=== PATIENT | female | born 1985 | race American Indian/Alaskan Native ===

== ENCOUNTER 2016-11-22 09:05 | Inpatient (IN) | payer MEDICAID, OTHER ==
[2016-11-22] MEDS ORDERED: Sodium Chloride 0.9% 1,000 ML IV ONE (09:31)
[2016-11-22 10:15] LABS: RBC URINE 2 /hpf (0-3); URINE BILIRUBIN NEGATIVE (NEGATIVE); URINE BLOOD NEGATIVE (NEGATIVE); URINE COLOR Yellow (YELLOW); URINE GLUCOSE (UA) NORMAL (Normal); URINE KETONE NEGATIVE (NEGATIVE); URINE LEUKOCYTE ESTERASE NEG Leu/uL (Negative); URINE PROTEIN NEGATIVE (NEGATIVE); URINE UROBILINOGEN NORMAL mg/dL (0.2-1.0); WBC URINE 1 /hpf (0-5)
[2016-11-22 10:15] LABS: BASO % 0.6 % (0.0-2.0); EOS # 0.2 K/uL (0.0-0.7); EOS % 3.9 % (0.0-4.0); HEMATOCRIT 38.9 % (34.0-47.0); LYMPH # 1.4 K/uL (1.0-4.3); LYMPH % 36.8 % (20.0-40.0); MEAN CELL VOLUME 92.2 fL (81.0-99.0); MEAN CORPUSCULAR HEMOGLOBIN 30.2 pg (27.0-31.0); MEAN CORPUSCULAR HGB CONC 32.7 g/dL (33.0-37.0); MEAN PLATELET VOLUME 8.4 fL (7.2-11.7); MONO # 0.3 K/uL (0.0-0.8); MONO % 8.6 % (0.0-10.0); NRBC % 0.2 % (0.0-2.0); RED CELL DISTRIBUTION WIDTH 13.6 % (11.5-14.5); WHITE BLOOD COUNT 3.9 K/uL (4.8-10.8)
[2016-11-22 10:21] LABS: INR 1.1
[2016-11-22 10:26] LABS: CHLORIDE 103 mmol/L (98-107)
[2016-11-22 10:27] LABS: POTASSIUM 3.4 mmol/L (3.6-5.2); SODIUM 143 mmol/L (132-148)
[2016-11-22 10:29] LABS: BILIRUBIN,TOTAL 0.7 mg/dL (0.2-1.3); CARBON DIOXIDE 26 mmol/L (22-30); GFR AFRICAN-AMERICAN > 60
[2016-11-22 10:30] LABS: ALB/GLOB RATIO 1.2 (1.0-2.1); ALKALINE PHOSPHATASE 56 U/L (38-126); ALT/SGPT 20 U/L (9-52); AST/SGOT 17 U/L (14-36); BLOOD UREA NITROGEN 14 mg/dL (7-17); GLUCOSE,RANDOM 89 mg/dL (65-105); TOTAL PROTEIN 7.6 g/dL (6.3-8.3)
--- NOTE | 2016-11-22 10:44 | C.PDOC ---
History Of Present Illness 31-year-old female, presents to the emergency department with complaints of right upper quadrant abdominal pain, referred by Dr White for cholecystectomy. Denies nausea/vomiting/diarrhea or fever. Time Seen by Provider: 11/22/16 09:22 Chief Complaint (Nursing): Abdominal Pain History Per: Patient History/Exam Limitations: no limitations Onset/Duration Of Symptoms: Days Location Of Pain/Discomfort: RUQ Quality Of Discomfort: Dull Alleviating Factors: None Recent travel outside of the [place]: No Past Medical History Reviewed: Historical Data, Nursing Documentation, Vital Signs Vital Signs: Last Vital Signs Temp 98.3 F 11/22/16 09:18 Pulse 74 11/22/16 09:18 Resp 18 11/22/16 09:18 BP 131/89 11/22/16 09:18 Pulse Ox 100 11/22/16 11:11 - Medical History PMH: Hypothyroidism Family History: States: No Known Family Hx - Social History Hx Alcohol Use: Yes Hx Substance Use: Yes - Immunization History Hx Tetanus Toxoid Vaccination: No Hx Influenza Vaccination: No Hx Pneumococcal Vaccination: No Review Of Systems Except As Marked, All Systems Reviewed And Found Negative. Constitutional: Negative for: Fever Cardiovascular: Negative for: Chest Pain Respiratory: Negative for: Shortness of Breath Gastrointestinal: Positive for: Abdominal Pain. Negative for: Nausea, Vomiting , Diarrhea Skin: Negative for: Rash Physical Exam - Physical Exam Appears: Non-toxic, No Acute Distress Skin: Normal Color, Warm, Dry, No Rash Head: Atraumatic, Normacephalic Eye(s): bilateral: Normal Inspection Nose: Normal Oral Mucosa: Moist Lips: Normal Appearing Neck: Normal ROM Cardiovascular: Rhythm Regular, No Murmur Respiratory: Normal Breath Sounds, No Accessory Muscle Use Gastrointestinal/Abdominal: Soft, Tenderness (RUQ), No Guarding, No Rebound Extremity: Normal ROM Neurological/Psych: Oriented x3, Normal Speech ED Course And Treatment - Laboratory Results Result Diagrams: 11/22/16 10:10 11/22/16 10:10 Lab Interpretation: Normal Urine POC: Negative ECG Rhythm: Sinus Bradycardia ECG Interpretation: Normal Rate From EC O2 Sat by Pulse Oximetry: 100 Pulse Ox Interpretation: Normal - Physician Consult Information Physician Contacted: Graham White Outcome Of Conversation: admit to Dr Avila Disposition Discussed With : Anabell Avila Doctor Will See Patient In The: Hospital - Disposition Disposition: HOSPITALIZED Disposition Time: 12:00 Condition: STABLE - POA Present On Arrival: None - Clinical Impression Clinical Impression: Abdominal pain, Cholecystitis - Scribe Statement The provider has reviewed the documentation as recorded by the Scribe (Jarred Escalera) All medical record entries made by the Scribe were at my direction and personally dictated by me. I have reviewed the chart and agree that the record accurately reflects my personal performance of the history, physical exam, medical decision making, and the department course for this patient. I have also personally directed, reviewed, and agree with the discharge instructions and disposition. Decision To Admit - Pt Status Changed To: Hospital Disposition Of: SDS Extended Stay Bed - InPatient: Physician Admission Certification:: Cholecystitis - . Bed Request Type: Regular Admitting Physician: Anabell Avila Patient Diagnosis: Abdominal pain, Cholecystitis
[2016-11-22] MEDS ORDERED: Sodium Chloride 0.9% 1,000 ML IV SCH (11:15)
--- NOTE | 2016-11-22 11:33 | CP.PCM.PN ---
Subjective - Date & Time of Evaluation Date of Evaluation: 11/22/16 Time of Evaluation: 11:28 - Subjective Subjective: Medicine Note- Dr Avila's service 31 year old female with no significant PMHx presents to the ED for cholecystectomy with Dr White. Patient states that for the past year she has been having intermittent abdominal pain that is associated with food intake. The patient went to see her PMD Dr Avila and had a CT abdomen done last week which showed gallstones. Patient was sent to see Dr White and scheduled for surgery today for cholecystectomy. Patient is NPO and has not eaten yet today. Patient is complaining of RUQ pain at this time that is mild in quality. Denies fever, chills, nausea, vomiting, chest pain, shortness of breath, recent illness, headache, dizziness, urinary symptoms, diarrhea, and focal weakness. PMD: Dr Avila PMHx: denies Meds: denies Surgical Hx: x2 (2008, 2012) Family Hx: Mom- brain aneurysm () Social Hx: Drinks EtOH once/week; Smokes 2 Black & Mild cigarettes daily; denies illicit drug use Allergies: no known drug allergies Objective - Vital Signs/Intake and Output Vital Signs (last 24 hours): Temp Pulse Resp BP Pulse Ox 98.3 F 74 18 131/89 100 11/22/16 09:18 11/22/16 09:18 11/22/16 09:18 11/22/16 09:18 11/22/16 11:11 - Medications Medications: Current Medications Sodium Chloride (Sodium Chloride 0.9%) 1,000 mls @ 100 mls/hr IV .Q10H CHAN - Labs Labs: PT 12.5 SECONDS (9.7-12.2) H 11/22/16 10:10 INR 1.1 11/22/16 10:10 - Constitutional Appears: Non-toxic, No Acute Distress - Head Exam Head Exam: ATRAUMATIC, NORMOCEPHALIC - Eye Exam Eye Exam: EOMI, Normal appearance, PERRL Pupil Exam: NORMAL ACCOMODATION - ENT Exam ENT Exam: Mucous Membranes Moist, Normal Exam - Neck Exam Neck Exam: Normal Inspection - Respiratory Exam Respiratory Exam: Clear to Ausculation Bilateral, NORMAL BREATHING PATTERN. absent: Rales, Rhonchi, Wheezes, Respiratory Distress - Cardiovascular Exam Cardiovascular Exam: REGULAR RHYTHM, +S1, +S2. absent: Murmur - GI/Abdominal Exam GI & Abdominal Exam: Soft, Tenderness (mild ttp RUQ and LUQ), Normal Bowel Sounds. absent: Distended, Firm, Guarding, Rigid Additional comments: Negative Parrish's sign - Extremities Exam Extremities Exam: Full ROM, Normal Capillary Refill, Normal Inspection. absent : Pedal Edema, Tenderness - Back Exam Back Exam: NORMAL INSPECTION - Neurological Exam Neurological Exam: Alert, Awake, CN II-XII Intact, Oriented x3 - Psychiatric Exam Psychiatric exam: Normal Affect, Normal Mood - Skin Skin Exam: Dry, Intact, Normal Color, Warm Assessment and Plan - Assessment and Plan (Free Text) Assessment: 1. Cholelithiasis NPO, scheduled for cholecystectomy today with Dr White Patient is afebrile, no leukocytosis, mild pain IVF NS @100cc/hr f/u EKG and Chest X-ray for preop clearance UA negative Surgery consulted- Dr White- help appreciated Monitor for pain- no meds needed at this time 2. Prophylactic measures SCDs Hold chemical anticoagulation for surgery Protonix 40mg IV daily Activity as tolerated
[2016-11-22] MEDS ORDERED: Lactated Ringer's 1,000 ML IV ONE ×3 (12:43→14:10)
[2016-11-22] MEDS ORDERED: Midazolam 2 MG/2 ML VIAL ONE (13:29)
[2016-11-22] MEDS ORDERED: Propofol 10 mg/ml Inj (20 ML) ONE (13:29)
[2016-11-22] MEDS ORDERED: ceFAZolin IV 1 gm in Dextrose 1 GM/50 ML BAG IVPB ONE (14:05)
[2016-11-22] MEDS ORDERED: Neostigmine Methylsulfate 3mg/3ml Syringe IV ONE (14:16)
--- NOTE | 2016-11-22 14:23 | RAD ---
HISTORY: preop clearance COMPARISON: No prior. FINDINGS: LUNGS: No active pulmonary disease. PLEURA: No significant pleural effusion identified, no pneumothorax apparent. CARDIOVASCULAR: Normal. OSSEOUS STRUCTURES: No significant abnormalities. VISUALIZED UPPER ABDOMEN: Normal. OTHER FINDINGS: None. IMPRESSION: No active disease.
[2016-11-22] MEDS ORDERED: Dextrose 5%/0.45% NS 1,000 ML IV SCH (14:30)
[2016-11-22] MEDS: HYDROmorphone 0.5 mg/0.5 ml ISec IVP PRN ×2 (14:41→15:25)
[2016-11-22] MEDS: Oxycodone/Acetaminophen 5/325 mg Tab PO PRN (19:36)
[2016-11-22] MEDS: ceFAZolin 1 gm FROZEN Premix 1 GM/50 ML ML IVPB SCH (22:51)
[2016-11-23] MEDS: Oxycodone/Acetaminophen 5/325 mg Tab PO PRN ×3 (00:31→21:27)
--- NOTE | 2016-11-23 03:16 | OP ---
PROCEDURE DATE: 11/22/2016 PREOPERATIVE DIAGNOSIS: Acute cholecystitis. POSTOPERATIVE DIAGNOSIS: Acute cholecystitis with umbilical hernia. PROCEDURE: Laparoscopic cholecystectomy (09775), repair of liver bleeding (65291) and repair of umbilical hernia (05175). SURGEON: Graham White MD ANESTHESIA: General endotracheal. ESTIMATED BLOOD LOSS: 50 mL. POSTOPERATIVE CONDITION: Stable. INDICATIONS FOR SURGERY: This is a 31-year-old female with history of chronic cholecystitis, admitted with severe abdominal pain with a diagnosis of cholecystitis, who will now undergo laparoscopic cholecystectomy. GROSS FINDINGS: The gallbladder was mildly inflamed and contains stones. An umbilical hernia was encountered upon periumbilical cutdown. DESCRIPTION OF PROCEDURE: The patient was taken to the operating room, general anesthesia was administered. The abdomen was prepped and draped, the periumbilical cutdown was performed. The umbilical hernia was encountered and dissected-free. Blood port was inserted and the abdomen was insufflated with CO2 under direct vision and remaining ports were replaced. The gallbladder was then retracted. The cystic duct was carefully dissected-free. The cystic duct, common duct, and cystic duct gallbladder junction was carefully identified, the cystic duct was clipped and divided. The cystic artery was identified, clipped and divided. Gallbladder was removed from the bed using the cautery. Bleeding in the bed was controlled using the cautery. A and the liver was repaired laparoscopically. The abdomen was irrigated with saline until clear. The ports were removed. The umbilical hernia defect was closed with interrupted heavy Vicryl sutures. The incisions were closed with simple subcuticular Monocryl and glue. The patient tolerated the procedure well and returned to recovery room in stable condition. Graham White MD
--- NOTE | 2016-11-23 05:01 | PCM.RRTMUL ---
<Yehuda Nash - Last Filed: 11/23/16 06:55> [employer] Nurses Assessment - Vital Signs Blood Pressure:: 142/93 Pulse Rate:: 56 Respiratory Rate:: 20 Temperature:: 98.7 F I.Reason for [employer] - A) Acute Change in Patient: Subjective: [employer] called at 4:50 due to syncopal episode. Per nursing report, patient felt well, requested help going to the bathroom, and fell after several steps. She was caught by the nurse and no head trauma occurred. Patient was helped to a chair, where she was sitting when I entered the room. She appeared lethargic, diaphoretic, and mildly confused, despite being AAOx3. Patient was initially hypotensive at 83/57 and NS 0.9% 1L was bolused. Patient admits to taking percocet in the past with no ill effect. Admits to dizziness, lethargy, diaphoresis. Denies chest pain, SOB, n/v, LE swelling, or any additional acute complaints. She responded well to fluid bolus and became less lethargic by the end of the rapid. Ordered: CBC, CMP, Mag, Phos, TSH, Free T4, Blood culture, Lactic Acid, CT Abd/ Pelvis w/Contrast. Patient placed on Telemetry and gupta ordered. - A) Initial Vital Signs: Blood Pressure: 83/57 Pulse Rate: 84 Respiratory Rate: 14 Temperature: 98.7 F O2 Sat by Pulse Oximetry: 96 Finger Stick Blood Glucose: 222 - B) Neurological Status (Select all that apply): Oriented, Verbal, Follows Commands, Confused, Lethargic , Weakness - Constitutional Appears: Non-toxic, No Acute Distress, Confused (mildly, extremely lethargic) - Head Head Exam: ATRAUMATIC, NORMAL INSPECTION - Eyes Eye Exam: EOMI. absent: Normal appearance (sclera very pale) - Respiratory Exam Respiratory Exam: Clear to Ausculation Bilateral, NORMAL BREATHING PATTERN. absent: Wheezes - Cardiovascular Exam Cardiovascular Exam: REGULAR RHYTHM, +S1, +S2 - GI/Abdominal Exam GI & Abdominal Exam: Soft, Tenderness (difuse abdominal tenderness, greatest in RUQ s/p cholecystectomy), Hypoactive Bowel Sounds - Neurological Exam Neurological Exam: Awake, CN II-XII Intact, Oriented x3, Reflexes Normal. absent: Alert (lethargic, weak) - Extremities Exam Extremities Exam: Normal Inspection. absent: Normal Capillary Refill, Pedal Edema, Tenderness Plan - A. End of [employer] Vital Signs: Blood Pressure: 98/63 Pulse Rate: 92 Respiratory Rate: 16 Temperature: 98.7 F O2 Sat by Pulse Oximetry: 100 <Jeremy Leal P - Last Filed: 11/24/16 06:13> Attending/Attestation - Attestation I have personally seen and examined this patient.: Yes I have fully participated in the care of the patient.: Yes I have reviewed all pertinent clinical information, including history, physical exam and plan: Yes Notes (Text): 11/24/16 06:13 see progress note on same day
[2016-11-23] MEDS ORDERED: Sodium Chloride 0.9% 1,000 ML IV ONE ×2 (05:06→06:50)
[2016-11-23 06:03] LABS: BASO % 0.4 % (0.0-2.0); HEMATOCRIT 27.9 % (34.0-47.0); LYMPH % 15.8 % (20.0-40.0); MEAN CELL VOLUME 92.9 fL (81.0-99.0); MEAN CORPUSCULAR HEMOGLOBIN 30.5 pg (27.0-31.0); MEAN CORPUSCULAR HGB CONC 32.9 g/dL (33.0-37.0); MEAN PLATELET VOLUME 8.8 fL (7.2-11.7); MONO # 0.3 K/uL (0.0-0.8); MONO % 4.7 % (0.0-10.0); RED CELL DISTRIBUTION WIDTH 12.8 % (11.5-14.5)
[2016-11-23 06:11] LABS: CHLORIDE 103 mmol/L (98-107); POTASSIUM 3.6 mmol/L (3.6-5.2); SODIUM 138 mmol/L (132-148)
[2016-11-23 06:13] LABS: GFR AFRICAN-AMERICAN > 60
[2016-11-23 06:14] LABS: ALB/GLOB RATIO 1.1 (1.0-2.1); ALKALINE PHOSPHATASE 39 U/L (38-126); ALT/SGPT 37 U/L (9-52); AST/SGOT 32 U/L (14-36); BILIRUBIN,TOTAL 0.9 mg/dL (0.2-1.3); BLOOD UREA NITROGEN 8 mg/dL (7-17); CALCIUM 8.1 mg/dl (8.6-10.4); CARBON DIOXIDE 23 mmol/L (22-30); GLUCOSE,RANDOM 173 mg/dL (65-105); PHOSPHOROUS 3.5 mg/dL (2.5-4.5); TOTAL PROTEIN 5.8 g/dL (6.3-8.3)
[2016-11-23 06:15] LABS: MAGNESIUM 1.5 mg/dL (1.6-2.3)
[2016-11-23 06:21] LABS: INR 1.2
[2016-11-23 06:45] LABS: THYROID STIMULATING HORMONE 0.37 mIU/L (0.46-4.68)
--- NOTE | 2016-11-23 07:08 | CP.PCM.PN ---
Subjective - Date & Time of Evaluation Date of Evaluation: 11/23/16 Time of Evaluation: 07:02 - Subjective Subjective: Seen pt during [employer], passed out while standing after she urinated. BP low when evaluated, on exam patient weak, tachycardic, diaphoretic. Abd exam showed some distension, tenderness beyond the area of the port for cholecystectomy Chest clear CVS regular tachycardia Ext no edema Conjuctiva pale While supine BP 118/78, hr 78/min, pt more responsive, not in distress. Stat labs ordered, and saline 1lit bolus, gupta Hemoglobin 12.7-> 9.2, lactic acid 3.5 Patient has 2 iv, right ac 20g, right wrist 22g Stat Abd/pelvis CT PRBC 1unit transfusion and 2 total cross match IVF 1lit further bolus Transfer to ICU spoke to Dr. Ruiz on phone who accepted the patient Primary team including Dr. Owens and Dr. Avila will be notified Objective - Vital Signs/Intake and Output Vital Signs (last 24 hours): Temp Pulse Resp BP Pulse Ox 98.7 F 92 H 16 98/63 L 100 11/23/16 05:20 11/23/16 05:20 11/23/16 05:20 11/23/16 05:20 11/23/16 04:30 Intake and Output: 11/23/16 11/23/16 06:59 18:59 Intake Total 950 Balance 950 - Medications Medications: Current Medications Docusate Sodium (Colace) 100 mg PO BID [facility] Last Admin: 11/22/16 18:00 Dose: Not Given Famotidine (Pepcid) 20 mg PO DAILY [facility] Hydromorphone HCl (Dilaudid) 0.5 mg IVP Q10M PRN PRN Reason: Pain, severe (8-10) Last Admin: 11/22/16 15:25 Dose: 0.5 mg Dextrose/Sodium Chloride (Dextrose 5%/0.45% Ns 1000 Ml) 1,000 mls @ 80 mls/hr IV .[id number] [facility] Last Admin: 11/22/16 17:05 Dose: 80 mls/hr Cefazolin Sodium (Ancef) 1 gm in 50 mls @ 100 mls/hr IVPB Q8H [facility] Last Admin: 11/22/16 22:51 Dose: 100 mls/hr Sodium Chloride (Sodium Chloride 0.9%) 1,000 mls @ 1,000 mls/hr IV .Q1H ONE Stop: 11/23/16 07:49 Ondansetron HCl (Zofran Inj) 4 mg IVP Q6 PRN PRN Reason: Nausea/Vomiting Last Admin: 11/23/16 01:17 Dose: 4 mg Oxycodone/Acetaminophen (Percocet 5/325 Mg Tab) 2 tab PO Q4H PRN PRN Reason: pain Stop: 11/25/16 14:25 Last Admin: 11/23/16 00:31 Dose: 2 tab Pneumococcal Polyvalent Vaccine (Pneumovax 23 Vaccine) 0.5 ml IM .ONCE ONE Stop: 11/23/16 10:01 - Labs Labs: 11/23/16 05:59 11/23/16 05:59 PT 12.9 SECONDS (9.7-12.2) H 11/23/16 05:59 INR 1.2 11/23/16 05:59 APTT 28 SECONDS (21-34) 11/23/16 05:59
[2016-11-23] MEDS ORDERED: Iodixanol 320 MG/ML 100 ML BOTTLE IV ONE (07:14)
[2016-11-23] MEDS: ceFAZolin 1 gm FROZEN Premix 1 GM/50 ML ML IVPB SCH ×3 (07:30→22:33)
--- NOTE | 2016-11-23 08:46 | CT ---
PROCEDURE: CT Abdomen and Pelvis with contrast HISTORY: r/o abd bleed; syncope, rapid called COMPARISON: None. TECHNIQUE: CT scan of the abdomen and pelvis was performed after intravenous administration of contrast. Oral contrast was not administered. Coronal and sagittal reformatted images were obtained. Contrast dose: 100 mL Visipaque Radiation dose: Total exam DLP = 294.8 mGy-cm. This CT exam was performed using one or more of the following dose reduction techniques: Automated exposure control, adjustment of the mA and/or kV according to patient size, and/or use of iterative reconstruction technique. FINDINGS: LOWER THORAX: There is subsegmental atelectasis in both lung bases. LIVER: The liver is normal in size and there is homogeneous enhancement. No focal mass. There is mild dilatation of central biliary radicles. GALLBLADDER AND BILE DUCTS: Status post cholecystectomy. PANCREAS: Normal in size and there is homogeneous enhancement without calcifications. No gross lesion or ductal dilatation. SPLEEN: The spleen is normal in size and there is homogeneous enhancement. ADRENALS: Both adrenal glands are normal in size without discrete nodule. KIDNEYS AND URETERS: Both kidneys are normal in size and there is homogeneous enhancement without hydronephrosis or focal mass. VASCULATURE: No aortic aneurysm. BOWEL: The small bowel loops are normal in caliber. There is moderate amount of stool scattered throughout the colon. APPENDIX: Normal appendix. PERITONEUM: There is large amount of free fluid in the abdomen and pelvis. There are scattered foci of free intraperitoneal air in the upper abdomen keeping with recent cholecystectomy. LYMPH NODES: No enlarged lymph nodes. BLADDER: The urinary bladder is well distended. There is a small amount of high attenuation in the central urinary bladder which could represent debris or blood. REPRODUCTIVE: The uterus is normal in size. A Baca bulb is seen in the cervical canal. BONES: No acute fracture. OTHER FINDINGS: None. IMPRESSION: 1. Status post cholecystectomy, large amount of free fluid in the abdomen and pelvis, the etiology of which is uncertain. Biliary leak is a consideration. A HIDA scan is recommended to confirm/ exclude the same. 2. Small amount of free intraperitoneal air in the upper abdomen is in keeping with recent surgical intervention. 3. Baca catheter bulb is in the cervical canal. Repositioning is recommended. Important findings were discussed with the resident and attending on floor on 11/23/2016 at 8:30 a.m.
--- NOTE | 2016-11-23 08:54 | CP.PCM.CON ---
<Mary Yeh - Last Filed: 11/23/16 17:27> History of Present Illness - History of Present Illness History of Present Illness: 31 year old female who presents to the ICU s/p cholecystectomy. The patient was transferred to the ICU from the medical floor due to syncopal episode at 4:50 AM. Per nursing report, patient felt well, requested help going to the bathroom, and fell after several steps. She was caught by the nurse and no head trauma occurred. Patient was helped to a chair. Per Dr. Nash's note patient appeared lethargic, diaphoretic, and mildly confused, despite being AAOx3. Patient was initially hypotensive at 83/57 and NS 0.9% 1L was bolused. Patient has been seen and examined at bedside in the ICU. Patient denies nausea, vomiting, dizziness, lightheadedness. Patient states she continues to have abdominal pain and it is a 7/10. Medical History: Denies Surgical History: Denies Medication: denies Surgical History: cholecystectomy (11/22/16); x2 (2008, 2012), umbilical hernia repair Family History: Mom- brain aneurysm () Social History: Drinks EtOH once/week; Smokes 2 Black & Mild cigarettes daily; denies illicit drug use Allergies: no known drug allergies Review of Systems - Constitutional Constitutional: absent: Fever, Headache - Cardiovascular Cardiovascular: absent: Chest Pain, Dyspnea, Palpitations - Respiratory Respiratory: absent: Dyspnea - Gastrointestinal Gastrointestinal: Abdominal Pain. absent: Constipation, Diarrhea, Nausea, Vomiting - Genitourinary Genitourinary: Other (Baca replaced in the ICU) - Neurological Neurological: absent: Dizziness, Headaches Past Patient History - Infectious Disease Hx of Infectious Diseases: None - Past Medical History & Family History Past Medical History?: Yes - Past Social History Smoking Status: Light Smoker < 10 Cigarettes Daily - CARDIAC Hx Hypertension: Yes - PULMONARY Hx Respiratory Disorders: No - NEUROLOGICAL Hx Neurological Disorder: No - HEENT Hx HEENT Problems: No - RENAL Hx Chronic Kidney Disease: No - ENDOCRINE/METABOLIC Hx Hypothyroidism: Yes - HEMATOLOGICAL/ONCOLOGICAL Hx Blood Disorders: No - INTEGUMENTARY Hx Dermatological Problems: No - MUSCULOSKELETAL/RHEUMATOLOGICAL Hx Musculoskeletal Disorders: No Hx Falls: No - GASTROINTESTINAL Hx Gastrointestinal Disorders: No - GENITOURINARY/GYNECOLOGICAL Hx Genitourinary Disorders: No - PSYCHIATRIC Hx Anxiety: Yes Hx Substance Use: Yes - SURGICAL HISTORY Hx Section: Yes (x2) - ANESTHESIA Hx Anesthesia: Yes Hx Anesthesia Reactions: No Meds Allergies/Adverse Reactions: Allergies Allergy/AdvReac Type Severity Reaction Status Date / Time No Known Allergies Allergy Verified 11/22/16 09:20 - Medications Medications: Current Medications Docusate Sodium (Colace) 100 mg PO BID [facility] Last Admin: 11/22/16 18:00 Dose: Not Given Famotidine (Pepcid) 20 mg PO DAILY [facility] Hydromorphone HCl (Dilaudid) 0.5 mg IVP Q10M PRN PRN Reason: Pain, severe (8-10) Last Admin: 11/22/16 15:25 Dose: 0.5 mg Dextrose/Sodium Chloride (Dextrose 5%/0.45% Ns 1000 Ml) 1,000 mls @ 80 mls/hr IV .[id number] [facility] Last Admin: 11/22/16 17:05 Dose: 80 mls/hr Cefazolin Sodium (Ancef) 1 gm in 50 mls @ 100 mls/hr IVPB Q8H [facility] Last Admin: 11/23/16 07:30 Dose: 100 mls/hr Ondansetron HCl (Zofran Inj) 4 mg IVP Q6 PRN PRN Reason: Nausea/Vomiting Last Admin: 11/23/16 01:17 Dose: 4 mg Oxycodone/Acetaminophen (Percocet 5/325 Mg Tab) 2 tab PO Q4H PRN PRN Reason: pain Stop: 11/25/16 14:25 Last Admin: 11/23/16 00:31 Dose: 2 tab Pneumococcal Polyvalent Vaccine (Pneumovax 23 Vaccine) 0.5 ml IM .ONCE ONE Stop: 11/23/16 10:01 Physical Exam - Constitutional Appears: No Acute Distress - Head Exam Head Exam: ATRAUMATIC, NORMAL INSPECTION - Eye Exam Eye Exam: EOMI, Normal appearance, PERRL Pupil Exam: NORMAL ACCOMODATION, PERRL - ENT Exam ENT Exam: Mucous Membranes Moist - Respiratory Exam Respiratory Exam: Clear to Auscultation Bilateral, NORMAL BREATHING PATTERN. absent: Decreased Breath Sounds, Rales, Rhonchi, Wheezes - Cardiovascular Exam Cardiovascular Exam: REGULAR RHYTHM, RRR, +S1, +S2 - GI/Abdominal Exam GI & Abdominal Exam: Distended, Firm, Normal Bowel Sounds, Tenderness - Extremities Exam Extremities exam: Positive for: normal capillary refill, normal inspection, pedal pulses present. Negative for: calf tenderness, pedal edema, tenderness Results - Vital Signs Recent Vital Signs: Last Vital Signs Temp 98.7 F 11/23/16 07:04 Pulse 92 H 11/23/16 07:04 Resp 16 11/23/16 07:04 BP 98/63 L 11/23/16 07:04 Pulse Ox 100 11/23/16 04:30 - Labs Result Diagrams: 11/23/16 11:53 11/23/16 05:59 Labs: Laboratory Results - last 24 hr 11/23/16 11/23/16 11/23/16 04:53 05:59 05:59 WBC 6.0 D RBC 3.00 L Hgb 9.2 L D Hct 27.9 L MCV 92.9 MCH 30.5 MCHC 32.9 L RDW 12.8 Plt Count 129 L D MPV 8.8 Neut % (Auto) 79.1 H Lymph % (Auto) 15.8 L Storey % (Auto) 4.7 Eos % (Auto) 0.0 Baso % (Auto) 0.4 Neut # 4.8 Lymph # 1.0 Storey # 0.3 Eos # 0.0 Baso # 0.0 PT INR APTT Sodium 138 Potassium 3.6 Chloride 103 Carbon Dioxide 23 Anion Gap 16 BUN 8 Creatinine 0.8 Est GFR ( Amer) > 60 Est GFR (Non-Af Amer) > 60 POC Glucose (mg/dL) 222 H Random Glucose 173 H Lactic Acid Calcium 8.1 L Phosphorus 3.5 Magnesium 1.5 L Total Bilirubin 0.9 AST 32 ALT 37 Alkaline Phosphatase 39 Total Protein 5.8 L Albumin 3.1 L D Globulin 2.7 Albumin/Globulin Ratio 1.1 Free T4 TSH 3rd Generation 0.37 L Blood Type Antibody Screen Crossmatch 11/23/16 11/23/16 11/23/16 05:59 05:59 07:06 WBC RBC Hgb Hct MCV MCH MCHC RDW Plt Count MPV Neut % (Auto) Lymph % (Auto) Storey % (Auto) Eos % (Auto) Baso % (Auto) Neut # Lymph # Storey # Eos # Baso # PT 12.9 H INR 1.2 APTT 28 Sodium Potassium Chloride Carbon Dioxide Anion Gap BUN Creatinine Est GFR ( Amer) Est GFR (Non-Af Amer) POC Glucose (mg/dL) Random Glucose Lactic Acid 3.5 H Calcium Phosphorus Magnesium Total Bilirubin AST ALT Alkaline Phosphatase Total Protein Albumin Globulin Albumin/Globulin Ratio Free T4 1.04 TSH 3rd Generation Blood Type Antibody Screen Crossmatch 11/23/16 07:13 WBC RBC Hgb Hct MCV MCH MCHC RDW Plt Count MPV Neut % (Auto) Lymph % (Auto) Storey % (Auto) Eos % (Auto) Baso % (Auto) Neut # Lymph # Storey # Eos # Baso # PT INR APTT Sodium Potassium Chloride Carbon Dioxide Anion Gap BUN Creatinine Est GFR ( Amer) Est GFR (Non-Af Amer) POC Glucose (mg/dL) Random Glucose Lactic Acid Calcium Phosphorus Magnesium Total Bilirubin AST ALT Alkaline Phosphatase Total Protein Albumin Globulin Albumin/Globulin Ratio Free T4 TSH 3rd Generation Blood Type A POSITIVE Antibody Screen Negative Crossmatch See Detail Assessment & Plan (1) Abdominal pain Assessment and Plan: Neuro: Alert and Oriented x3 Pulm: No acute issues CV: No acute issues Heme: H/H: 7.6 - Blood transfusion not indicated - patient is hemodynamically stable - Continue to monitor GI: s/p cholecystectomy with Dr White Abdominal CT: large amount of free fluid in the abdomen and pelvis. HIDA Scan: No evidence of bile leak following cholecystectomy. Abnormal fluid collection left lower quadrant likely hemorrhagic process which is consistent with clinical presentation. - Continue to monitor - NPO Renal: Baca in place ID: No acute issues End: No acute issues DVT proph - SCDs, VTE contraindicated due to acute blood loss GI Proph: Pepcid 20mg IVP Daily Code Status: full code Case discussed with Dr. Rose Yeh PGY-1 Status: Acute <Gwyn Rose - Last Filed: 11/23/16 18:25> Meds - Medications Medications: Current Medications Docusate Sodium (Colace) 100 mg PO BID [facility] Last Admin: 11/23/16 18:05 Dose: Not Given Famotidine (Pepcid) 20 mg PO DAILY [facility] Last Admin: 11/23/16 12:20 Dose: 20 mg Hydromorphone HCl (Dilaudid) 0.5 mg IVP Q10M PRN PRN Reason: Pain, severe (8-10) Last Admin: 11/22/16 15:25 Dose: 0.5 mg Cefazolin Sodium (Ancef) 1 gm in 50 mls @ 100 mls/hr IVPB Q8H [facility] Last Admin: 11/23/16 15:00 Dose: 100 mls/hr Sodium Chloride (Sodium Chloride 0.9%) 1,000 mls @ 80 mls/hr IV .[id number] [facility] Last Admin: 11/23/16 09:26 Dose: 80 mls/hr Nicotine (Nicoderm Cq) 1 patch TD DAILY [facility] Last Admin: 11/23/16 18:01 Dose: 1 patch Ondansetron HCl (Zofran Inj) 4 mg IVP Q6 PRN PRN Reason: Nausea/Vomiting Last Admin: 11/23/16 01:17 Dose: 4 mg Oxycodone/Acetaminophen (Percocet 5/325 Mg Tab) 2 tab PO Q4H PRN PRN Reason: pain Stop: 11/25/16 14:25 Last Admin: 11/23/16 12:20 Dose: 2 tab Results - Vital Signs Recent Vital Signs: Last Vital Signs Temp 98.5 F 11/23/16 16:00 Pulse 84 11/23/16 17:00 Resp 18 11/23/16 17:00 BP 129/72 11/23/16 17:00 Pulse Ox 99 11/23/16 17:00 - Labs Result Diagrams: 11/23/16 11:53 11/23/16 05:59 Labs: Laboratory Results - last 24 hr 11/23/16 11/23/16 11/23/16 04:53 05:59 05:59 WBC 6.0 D RBC 3.00 L Hgb 9.2 L D Hct 27.9 L MCV 92.9 MCH 30.5 MCHC 32.9 L RDW 12.8 Plt Count 129 L D MPV 8.8 Neut % (Auto) 79.1 H Lymph % (Auto) 15.8 L Storey % (Auto) 4.7 Eos % (Auto) 0.0 Baso % (Auto) 0.4 Neut # 4.8 Lymph # 1.0 Storey # 0.3 Eos # 0.0 Baso # 0.0 Differential Comment PT INR APTT Sodium 138 Potassium 3.6 Chloride 103 Carbon Dioxide 23 Anion Gap 16 BUN 8 Creatinine 0.8 Est GFR ( Amer) > 60 Est GFR (Non-Af Amer) > 60 POC Glucose (mg/dL) 222 H Random Glucose 173 H Lactic Acid Calcium 8.1 L Phosphorus 3.5 Magnesium 1.5 L Total Bilirubin 0.9 AST 32 ALT 37 Alkaline Phosphatase 39 Total Protein 5.8 L Albumin 3.1 L D Globulin 2.7 Albumin/Globulin Ratio 1.1 Free T4 TSH 3rd Generation 0.37 L Blood Type Antibody Screen Crossmatch 11/23/16 11/23/16 11/23/16 05:59 05:59 07:06 WBC RBC Hgb Hct MCV MCH MCHC RDW Plt Count MPV Neut % (Auto) Lymph % (Auto) Storey % (Auto) Eos % (Auto) Baso % (Auto) Neut # Lymph # Storey # Eos # Baso # Differential Comment PT 12.9 H INR 1.2 APTT 28 Sodium Potassium Chloride Carbon Dioxide Anion Gap BUN Creatinine Est GFR ( Amer) Est GFR (Non-Af Amer) POC Glucose (mg/dL) Random Glucose Lactic Acid 3.5 H Calcium Phosphorus Magnesium Total Bilirubin AST ALT Alkaline Phosphatase Total Protein Albumin Globulin Albumin/Globulin Ratio Free T4 1.04 TSH 3rd Generation Blood Type Antibody Screen Crossmatch 11/23/16 11/23/16 11/23/16 07:13 11:53 11:53 WBC 8.0 RBC 2.52 L Hgb 7.6 L Hct 23.0 L MCV 91.4 MCH 30.1 MCHC 32.9 L RDW 12.9 Plt Count 115 L MPV 8.7 Neut % (Auto) 70.9 Lymph % (Auto) 22.8 Storey % (Auto) 5.8 Eos % (Auto) 0.3 Baso % (Auto) 0.2 Neut # 5.7 Lymph # 1.8 Storey # 0.5 Eos # 0.0 Baso # 0.0 Differential Comment PT INR APTT Sodium Potassium Chloride Carbon Dioxide Anion Gap BUN Creatinine Est GFR ( Amer) Est GFR (Non-Af Amer) POC Glucose (mg/dL) Random Glucose Lactic Acid 1.0 Calcium Phosphorus Magnesium Total Bilirubin AST ALT Alkaline Phosphatase Total Protein Albumin Globulin Albumin/Globulin Ratio Free T4 TSH 3rd Generation Blood Type A POSITIVE Antibody Screen Negative Crossmatch See Detail Attending/Attestation - Attestation I have personally seen and examined this patient.: Yes I have fully participated in the care of the patient.: Yes I have reviewed all pertinent clinical information: Yes Notes (Text): 11/23/16 18:21 I have seen and examined the patient. Medical records, lab studies, and imaging were reviewed by me and a management plan was formulated on multidisciplinary rounds with resident Dr. Yeh. I agree with their above documented assessment and plan. Patient has a large amount of fluid in her abdomen. Suspected either Bleed or Biliary leak s/p lap yesika. HIDA scan negative for leak. If bleed, most likely venous in origin, because if arterial patient would be clinically worse. H/H dropped but patient is clinically asymptomatic, no tachy, no hypotension, no further orthostasis, AAOx3. Will hold on transfusion for now, with asymptomatic anemia. Will do serial h/h's. If continues to drop, will rescan. Discussed plan with surgeon, Dr. Simmons. Critical Care Time 35 minutes. Multi-disciplinary rounds were performed with house staff, nursing, speech therapy, respiratory therapy, pharmacy and nutrition with integrated input from the primary team/attending and other consulting services. The documented time is cumulative and includes review of patient data/exams/labs/chart review and examination of the patient on rounds and throughout the day; time is exclusive of any procedures or teaching time.
[2016-11-23] MEDS ORDERED: Magnesium Sulfate 1 gm in D5W 1 GM/100 ML BAG IVPB ONE (09:00)
[2016-11-23] MEDS: Sodium Chloride 0.9% 1,000 ML IV SCH ×2 (09:26→21:45)
[2016-11-23] MEDS ORDERED: Pneumococcal 23-Valent Vaccine IM ONE (10:00)
[2016-11-23 12:15] LABS: LYMPH # 1.8 K/uL (1.0-4.3); MONO # 0.5 K/uL (0.0-0.8)
[2016-11-23 12:19] LABS: BASO % 0.2 % (0.0-2.0); EOS % 0.3 % (0.0-4.0); LYMPH % 22.8 % (20.0-40.0); MEAN CELL VOLUME 91.4 fL (81.0-99.0); MEAN CORPUSCULAR HEMOGLOBIN 30.1 pg (27.0-31.0); MEAN CORPUSCULAR HGB CONC 32.9 g/dL (33.0-37.0); MEAN PLATELET VOLUME 8.7 fL (7.2-11.7); MONO % 5.8 % (0.0-10.0); RED CELL DISTRIBUTION WIDTH 12.9 % (11.5-14.5)
--- NOTE | 2016-11-23 12:59 | NM ---
PROCEDURE: Nuclear Medicine Hepatobiliary Scan) HISTORY: r/o biliary leak, s/p yesika Additional clinical information kindly provided by the surgeon involved in the care and management this individual indicates normal LFTs, of the drop and hematocrit at and possible periprostatic operative bleeding COMPARISON: November 22, 2016. CT abdomen and pelvis TECHNIQUE: 5.0 mCi of technetium 99m Mebrofenin was administered intravenously. Planar images of the abdomen were obtained at 5 min intervals to 60 mins. Delayed images were also obtained. FINDINGS: LIVER: Timely and homogenous uptake. COMMON BILE DUCT: identified at 15 mins. GALLBLADDER: Status post cholecystectomy common no abnormal radionuclide collections in the gallbladder fossa SMALL BOWEL: Identified at 20 mins. On the sequential images obtained at commencing at 10 minutes and visualized sequentially at 5 minute intervals PE is abnormal accumulation of radionuclide in the left lower quadrant. I suspect this represents hemorrhagic process. IMPRESSION: No evidence of bile leak following cholecystectomy. Abnormal fluid collection left lower quadrant likely hemorrhagic process which is consistent with clinical presentation and information kindly provided byGraham White M.D. at the time of this interpretation. Communication of results: I discussed the findings directly with Dr. White at 12:51, November 23, 2016.
[2016-11-23 20:16] LABS: BASO % 0.3 % (0.0-2.0); EOS # 0.1 K/uL (0.0-0.7); EOS % 1.1 % (0.0-4.0); HEMATOCRIT 21.1 % (34.0-47.0); LYMPH % 26.9 % (20.0-40.0); MEAN CORPUSCULAR HEMOGLOBIN 30.5 pg (27.0-31.0); MEAN CORPUSCULAR HGB CONC 33.2 g/dL (33.0-37.0); MEAN PLATELET VOLUME 8.5 fL (7.2-11.7); MONO # 0.6 K/uL (0.0-0.8); RED CELL DISTRIBUTION WIDTH 13.4 % (11.5-14.5); WHITE BLOOD COUNT 7.4 K/uL (4.8-10.8)
[2016-11-24] MEDS: Oxycodone/Acetaminophen 5/325 mg Tab PO PRN ×2 (05:56→20:28)
[2016-11-24] MEDS: ceFAZolin 1 gm FROZEN Premix 1 GM/50 ML ML IVPB SCH ×3 (06:00→22:05)
[2016-11-24 06:08] LABS: BASO % 0.2 % (0.0-2.0); EOS # 0.1 K/uL (0.0-0.7); HEMATOCRIT 22.2 % (34.0-47.0); LYMPH # 1.4 K/uL (1.0-4.3); LYMPH % 17.8 % (20.0-40.0); MEAN CORPUSCULAR HEMOGLOBIN 29.8 pg (27.0-31.0); MEAN CORPUSCULAR HGB CONC 33.5 g/dL (33.0-37.0); MEAN PLATELET VOLUME 8.6 fL (7.2-11.7); MONO # 0.5 K/uL (0.0-0.8); MONO % 7.1 % (0.0-10.0); RED CELL DISTRIBUTION WIDTH 14.3 % (11.5-14.5); WHITE BLOOD COUNT 7.6 K/uL (4.8-10.8)
[2016-11-24 06:17] LABS: CHLORIDE 106 mmol/L (98-107)
[2016-11-24 06:18] LABS: POTASSIUM 3.6 mmol/L (3.6-5.2); SODIUM 139 mmol/L (132-148)
[2016-11-24 06:20] LABS: ALB/GLOB RATIO 1.1 (1.0-2.1); ALKALINE PHOSPHATASE 33 U/L (38-126); ALT/SGPT 38 U/L (9-52); AST/SGOT 22 U/L (14-36); BLOOD UREA NITROGEN 4 mg/dL (7-17); CARBON DIOXIDE 24 mmol/L (22-30); GFR AFRICAN-AMERICAN > 60; GLUCOSE,RANDOM 86 mg/dL (65-105)
[2016-11-24 06:21] LABS: CALCIUM 7.6 mg/dl (8.6-10.4); MAGNESIUM 1.7 mg/dL (1.6-2.3); PHOSPHOROUS 2.7 mg/dL (2.5-4.5)
[2016-11-24 11:17] VITALS: O2SAT 98
[2016-11-24 13:00] LABS: BASO # 0.1 K/uL (0.0-0.2); BASO % 0.8 % (0.0-2.0); EOS # 0.2 K/uL (0.0-0.7); EOS % 2.4 % (0.0-4.0); HEMATOCRIT 22.9 % (34.0-47.0); LYMPH # 1.9 K/uL (1.0-4.3); MEAN CELL VOLUME 90.4 fL (81.0-99.0); MEAN CORPUSCULAR HGB CONC 33.2 g/dL (33.0-37.0); MEAN PLATELET VOLUME 8.8 fL (7.2-11.7); MONO # 0.6 K/uL (0.0-0.8); RED CELL DISTRIBUTION WIDTH 14.5 % (11.5-14.5)
[2016-11-24 14:21] VITALS: BP 151/102
[2016-11-24] MEDS: Sodium Chloride 0.9% 1,000 ML IV SCH ×2 (14:22→23:00)
--- NOTE | 2016-11-24 21:34 | PN ---
DATE: 11/23/2016 SUBJECTIVE: Postoperative day #1. During the link cutter hours at approximately 4 a.m., the patient was according to her feeling well except for needing to urinate. So, she was helped to the bathroom and after urinating, had a syncopal episode. She was found on the floor and a rapid response was called. At that time, her blood pressure was found to be low in the 80's and she was immediately given a liter of saline with blood pressure coming up to 100. Her mental status improved and she was taken to the ICU. During this time, I was not called, the patient was in the ICU the following morning. A CAT scan was obtained and it revealed a fluid collection in the abdomen. This along with the fact that the hemoglobin have dropped 12 to 9 and then later to 7 showed that the patient had a bleeding episode. PHYSICAL EXAMINATION GENERAL: Currently, I examined the patient in her room in the ICU, she was awake and alert. VITAL SIGNS: Stable vital signs with blood pressure of 140/101, pulse of 90. ABDOMEN: Soft and mildly distended. Bowel sounds are present. The remainder of the physical exam was unremarkable. IMPRESSION: My impression is that the patient had a delayed bleed postoperatively. It may have recurred prior to the syncopal episode or which would have been result of a vasovagal response from urinating followed by a fall, followed by a bleed or the patient may have had a bleed probably as she had elevated blood pressure throughout the evening prior to her syncopal event. In any event, the patient was very stable on the recovery room and in an immediate postoperative period and the procedure was not particularly difficult taking only a 25 minutes of operative time and the gallbladder was not acutely inflamed and there was no significant bleeding. During the case except for a liver rent laterally which was small and repaired laparoscopically via cautery and had no evidence of bleeding at the time of the surgery ended. PLAN: The plan is to watch the patient in the ICU overnight and continue to monitor her vital signs as her blood pressure and everything has remained stable and there was no sign of ongoing bleeding. Graham White MD [facility] # [id number] MTDD
--- NOTE | 2016-11-24 21:39 | PN ---
DATE: 11/24/2016 SUBJECTIVE: Postoperative day #2. The patient is resting comfortably in bed. PHYSICAL EXAMINATION VITAL SIGNS: Blood pressure is 151/102, respiration are 20 and regular and pulse is 99. ABDOMEN: Less distended and less tender. Bowel sounds are present. Of note, the patient passed a significant amount of gas she said this morning without bowel movement. LABORATORY DATA: As far as her labs, her liver function test is normal. A HIDA scan done yesterday was negative for a bowel leak. Her hemoglobin is stabilized at 7.4 and the remainder of her labs are unremarkable. IMPRESSION: My impression is that the patient had a delayed postoperative bleed after a laparoscopic cholecystectomy. It may have been due to a fall or from hypertensive episodes throughout the evening. She has been stable since yesterday and continues to remain stable today. Her diet has been advanced to clear liquids and I am now going to advance to a regular diet. Also, I will transfer out of the ICU and will be discharged to home in 1 or 2 days. Graham Whtie MD [facility]
[2016-11-25] MEDS: ceFAZolin 1 gm FROZEN Premix 1 GM/50 ML ML IVPB SCH (06:30)
[2016-11-25] MEDS: Oxycodone/Acetaminophen 5/325 mg Tab PO PRN (06:42)
--- NOTE | 2016-11-25 07:13 | CARD ---
APPROVED REPORT EKG Measurement Heart [id number] CT 200P65 [id number] <Conclusion> Sinus bradycardia with sinus arrhythmia Otherwise normal ECG
[2016-11-25 07:45] VITALS: PULSE 72; RESP 20; TEMP 97.7
[2016-11-25] MEDS: Sodium Chloride 0.9% 1,000 ML IV SCH (10:04)
[2016-11-25 11:23] LABS: HEMATOCRIT 23.8 % (34.0-47.0); MEAN CELL VOLUME 89.4 fL (81.0-99.0); MEAN CORPUSCULAR HEMOGLOBIN 30.2 pg (27.0-31.0); MEAN CORPUSCULAR HGB CONC 33.7 g/dL (33.0-37.0); MEAN PLATELET VOLUME 8.1 fL (7.2-11.7); RED CELL DISTRIBUTION WIDTH 14.5 % (11.5-14.5); WHITE BLOOD COUNT 7.7 K/uL (4.8-10.8)
[2016-11-25 11:35] LABS: POTASSIUM 3.8 mmol/L (3.6-5.2)
--- NOTE | 2016-11-25 14:01 | CP.PCM.PN ---
Subjective - Date & Time of Evaluation Date of Evaluation: 11/25/16 Time of Evaluation: 14:01 - Subjective Subjective: PT CLEARED FOR D/C HOME PER DR. MCNAIR. PT CLEARED BY DR. WINKLER. ALL D/C INSTRUCTIONS DISCUSSED WITH PT. HAS F/U APPT WITH DR. WINKLER ALREADY. HE ALSO LEFT PT RX FOR TYLENOL # 3. I SENT TO HER PHARMACY RX FOR COLACE AND FEOSOL. PT TO F/U WITH PMD THIS WEEK. NO FURTHER ORDERS. Objective - Vital Signs/Intake and Output Vital Signs (last 24 hours): Temp Pulse Resp BP Pulse Ox 97.7 F 72 20 151/102 H 98 11/25/16 04:00 11/25/16 04:00 11/25/16 04:00 11/24/16 13:44 11/24/16 11:10 Intake and Output: 11/25/16 11/25/16 06:59 18:59 Intake Total 170 360 Output Total 0 Balance 170 360 - Medications Medications: Current Medications Docusate Sodium (Colace) 100 mg PO BID [facility] Last Admin: 11/25/16 10:02 Dose: 100 mg Famotidine (Pepcid) 20 mg PO DAILY [facility] Last Admin: 11/25/16 10:02 Dose: 20 mg Hydromorphone HCl (Dilaudid) 0.5 mg IVP Q10M PRN PRN Reason: Pain, severe (8-10) Last Admin: 11/22/16 15:25 Dose: 0.5 mg Cefazolin Sodium (Ancef) 1 gm in 50 mls @ 100 mls/hr IVPB Q8H [facility] Last Admin: 11/25/16 06:30 Dose: 100 mls/hr Nicotine (Nicoderm Cq) 1 patch TD DAILY [facility] Last Admin: 11/24/16 10:15 Dose: 1 patch Ondansetron HCl (Zofran Inj) 4 mg IVP Q6 PRN PRN Reason: Nausea/Vomiting Last Admin: 11/23/16 01:17 Dose: 4 mg Oxycodone/Acetaminophen (Percocet 5/325 Mg Tab) 2 tab PO Q4H PRN PRN Reason: pain Stop: 11/25/16 14:25 Last Admin: 11/25/16 06:42 Dose: 2 tab - Labs Labs: 11/25/16 11:19 11/25/16 11:19 PT 12.9 SECONDS (9.7-12.2) H 11/23/16 05:59 INR 1.2 11/23/16 05:59 APTT 28 SECONDS (21-34) 11/23/16 05:59
--- NOTE | 2017-01-02 08:43 | DS ---
HISTORY OF PRESENT ILLNESS: The patient is admitted to the hospital with chief complaint of . The patient came to the ER, advised admission. PHYSICAL EXAMINATION: GENERAL: The patient is awake, alert, and oriented. The patient supportive care, showed a little bit of improvement, discharged to be followed as outpatient. Anabell Avila MD
== END 2016-11-25 14:30 | disposition home or self-care (01) | DRG 493 ==
LOC: C.ER 09:05 → C.9E 10:57 → C.6T 16:24 → C.9I 11-23 08:15
PROVIDERS: ADMIT Internal Medicine Pulmonary Disease; ATTEND Internal Medicine Pulmonary Disease
PROC: 0WQF4ZZ Repair Abdominal Wall, Percutaneous Endoscopic Approach (ICD-10-PCS; 2016-11-22)
PROC: 0FT44ZZ Resection of Gallbladder, Percutaneous Endoscopic Approach (ICD-10-PCS; principal; 2016-11-22 13:25)
DX: K80.00 Calculus of gallbladder with acute cholecystitis without obstruction (principal); K91.840 Postprocedural hemorrhage of a digestive system organ or structure following a digestive system procedure; D64.9 Anemia, unspecified; K42.9 Umbilical hernia without obstruction or gangrene; Y83.6 Removal of other organ (partial) (total) as the cause of abnormal reaction of the patient, or of later complication, without mention of misadventure at the time of the procedure; Y92.239 Unspecified place in hospital as the place of occurrence of the external cause

== ENCOUNTER 2016-11-28 12:11 | Emergency (ER) | payer OTHER ==
[2016-11-28] MEDS ORDERED: Sodium Chloride 0.9% 1,000 ML IV ONE (13:12)
[2016-11-28] MEDS ORDERED: Sodium Chloride 0.9% 1,000 ML ONE (13:21)
[2016-11-28 13:34] LABS: BASO # 0.1 K/uL (0.0-0.2); BASO % 0.6 % (0.0-2.0); EOS # 0.2 K/uL (0.0-0.7); EOS % 2.5 % (0.0-4.0); HEMOGLOBIN 8.8 g/dL (11.0-16.0); LYMPH # 1.1 K/uL (1.0-4.3); LYMPH % 11.4 % (20.0-40.0); MEAN PLATELET VOLUME 7.6 fL (7.2-11.7); MONO # 0.9 K/uL (0.0-0.8); MONO % 9.4 % (0.0-10.0); NEUT # 7.5 K/uL (1.8-7.0); NEUT % 76.1 % (50.0-75.0); RBC 2.93 Mil/uL (3.80-5.20); RED CELL DISTRIBUTION WIDTH 14.6 % (11.5-14.5); WHITE BLOOD COUNT 9.9 K/uL (4.8-10.8)
[2016-11-28 13:40] LABS: HCG,QUALITATIVE URINE NEGATIVE (NEGATIVE)
[2016-11-28 13:42] LABS: ALBUMIN 3.8 g/dL (3.5-5.0); SQUAMOUS EPITHIAL 7 /hpf (0-5); URINE BACTERIA RARE (<OCC); URINE BILIRUBIN NEGATIVE (NEGATIVE); URINE BLOOD NEGATIVE (NEGATIVE); URINE CLARITY Clear (Clear); URINE COLOR Amber (YELLOW); URINE GLUCOSE (UA) NORMAL (Normal); URINE LEUKOCYTE ESTERASE NEG Leu/uL (Negative); URINE NITRATE NEGATIVE (NEGATIVE); URINE PROTEIN 1+ mg/dL (NEGATIVE)
[2016-11-28 13:44] LABS: GFR AFRICAN-AMERICAN > 60; GFR NON-AFRICAN AMERICAN > 60
[2016-11-28 13:45] LABS: ALB/GLOB RATIO 1.1 (1.0-2.1); ALT/SGPT 22 U/L (9-52); AST/SGOT 30 U/L (14-36); BLOOD UREA NITROGEN 13 mg/dL (7-17); CALCIUM 8.7 mg/dl (8.6-10.4); LIPASE 41 U/L (23-300)
--- NOTE | 2016-11-28 13:45 | C.PDOC ---
History Of Present Illness 31 year old female presents to the ED with complaints of swelling and pain to the RUQ for approximately one week following a laproscopic cholecystectomy performed by Dr. White. Patient notes diminished PO intake since the surgery and was referred by Dr. Simmons to visit the ED today. She denies any fever, nausea, or vomiting. Time Seen by Provider: 11/28/16 13:06 Chief Complaint (Nursing): Chest Pain History Per: Patient History/Exam Limitations: no limitations Onset/Duration Of Symptoms: Days (1 week since surgery ) Current Symptoms Are (Timing): Still Present Quality: "Pain", Other (swelling ) Associated Symptoms: denies: Nausea, Dyspnea, Diaphoresis, Syncope Recent travel outside of the [place]: No Additional History Per: Prior Records Past Medical History Reviewed: Historical Data, Nursing Documentation, Vital Signs Vital Signs: Last Vital Signs Temp 98.4 F 11/28/16 16:54 Pulse 89 11/28/16 16:54 Resp 18 11/28/16 16:54 BP 131/90 11/28/16 16:54 Pulse Ox 99 11/28/16 16:54 - Medical History PMH: Anxiety, HTN, Hypothyroidism - [facility] Procedures REPAIR ABDOMINAL WALL, PERCUTANEOUS ENDOSCOPIC APPROACH (11/22/16) RESECTION OF GALLBLADDER, PERCUTANEOUS ENDOSCOPIC APPROACH (11/22/16) Family History: States: Unknown Family Hx - Social History Hx Alcohol Use: Yes Hx Substance Use: Yes - Immunization History Hx Tetanus Toxoid Vaccination: No Hx Influenza Vaccination: No Hx Pneumococcal Vaccination: No Review Of Systems Constitutional: Negative for: Fever, Chills Cardiovascular: Negative for: Chest Pain, Palpitations Respiratory: Negative for: Cough, Shortness of Breath Gastrointestinal: Positive for: Abdominal Pain. Negative for: Nausea, Vomiting , Diarrhea Physical Exam - Physical Exam Appears: Non-toxic, No Acute Distress Skin: Warm, Dry Head: Atraumatic Eye(s): bilateral: Normal Inspection, PERRL, EOMI Oral Mucosa: Moist Neck: Supple Chest: Symmetrical, No Deformity Cardiovascular: Rhythm Regular Respiratory: Normal Breath Sounds, No Rhonchi, No Wheezing Gastrointestinal/Abdominal: Soft, Tenderness (Tenderness and swelling to right upper abdomen around laproscopic port), No Distention, No Guarding, No Rebound Extremity: Normal ROM, No Tenderness Neurological/Psych: Oriented x3, Normal Speech, Normal Cognition, Normal Cranial Nerves, Normal Motor, Normal Sensation Gait: Steady ED Course And Treatment - Laboratory Results Result Diagrams: 11/28/16 13:28 11/28/16 13:28 Lab Interpretation: Normal (no leukocytosis, tox + opiates, cannabanoids, ua neg.) Urine POC: Negative O2 Sat by Pulse Oximetry: 100 (room air ) - CT Scan/US CT Abdomen Pelvis with Contrast Other Rad Studies (CT/US): Read By Radiologist, Radiology Report Reviewed CT/US Interpretation: Impression: Phlegmonous changes and bubbles of gas are noted within the right parasagittal soft tissues in the region of interest denoted by a BB marker. No focal fluid collection or abscess discretely identified. The right rectus abdominis and oblique muscles appear asymmetrically enlarged, heterogeneous, and edematous. Appearance may be related to infectious etiologies or possibly hemorrhagic. No discrete fluid collections or definite blood products are identified within the musculature. Punctate focus of air is noted in the right upper quadrant posterior to the rectus sheath, possibly related to recent surgery. Mild abdominal ascites. Large pelvic ascites. Cholecystectomy. 6 mm too small to characterize right hepatic lobe hypodensity. Progress Note: 1530 d/w Dr. White, ok to d/c home without acute intra- abdominal pathology. 1630: calls to f/u with Dr. White Medical Decision Making Medical Decision Making: small fluid collection, not infected, at R GB access area, related to lap yesika 11/22/26. ok to d/c home with outpatient f/u. Disposition Doctor Will See Patient In The: Office Counseled Patient/Family Regarding: Studies Performed, Diagnosis - Disposition Referrals: Anabell Avila MD [Staff Provider] - Graham White MD [Staff Provider] - Disposition: HOME/ ROUTINE Disposition Time: 16:38 Condition: GOOD Additional Instructions: continue warm compresses over the R upper quadrant fluid collection continue motrin 400-600 mg every 6 hours as needed Pepcid 20 mg @ night to prevent stomach irritation from the Motrin Further narcotic pain meds per Dr. White. Follow-up with Dr. White per his recommendations. Instructions: Postop pain (ED) Forms: [facility] (Telugu) - Clinical Impression Clinical Impression: Post-op pain, Fluid collection at surgical site - Scribe Statement The provider has reviewed the documentation as recorded by the Scribe Mikaela Trae All medical record entries made by the Nick were at my direction and personally dictated by me. I have reviewed the chart and agree that the record accurately reflects my personal performance of the history, physical exam, medical decision making, and the department course for this patient. I have also personally directed, reviewed, and agree with the discharge instructions and disposition.
[2016-11-28 13:47] LABS: BARBITURATES, UR NEGATIVE (NEGATIVE)
[2016-11-28 13:48] LABS: BENZODIAZEPINES, UR NEGATIVE (NEGATIVE)
[2016-11-28 13:50] LABS: OPIATES, UR POSITIVE (NEGATIVE)
[2016-11-28 13:51] LABS: PHENCYCLIDINE, UR NEGATIVE (NEGATIVE)
[2016-11-28] MEDS ORDERED: Iodixanol 320 MG/ML 100 ML BOTTLE IV ONE (14:23)
--- NOTE | 2016-11-28 15:28 | CT ---
CT abdomen and pelvis with IV contrast Indication: RUQ abd, @ lap site, ? STS vs abscess vs GB bed Technique: Contiguous axial images of the abdomen and pelvis. Coronal and Sagittal reformats generated and reviewed. Oral contrast was not administered. 100 mL Visipaque IV. May reflect edema or blood products. CT exam was performed using 1 or more of the falling dose reduction techniques: Automated exposure control, adjustment of the MAA and/or kV according to patient size, and/or use of iterative reconstruction technique. Radiation dose: Total exam DLP = 199.57 MGy-cm. Comparison: CT abdomen and pelvis with contrast performed 11/23/16 Findings: No visible consolidation, pleural effusion, or pneumothorax. Cholecystectomy. 6 mm too small to characterize right hepatic lobe hypodensity. The spleen, kidneys, pancreas, and adrenal glands appear otherwise grossly unremarkable. The stomach is nondistended. Lack of oral contrast limits evaluation. The bowel loops appear within normal limits of caliber without evidence of intestinal obstruction. There is no definite free air. The appendix appears within normal limits of caliber. Phlegmonous changes and bubbles of gas are noted within the right parasagittal soft tissues. No focal fluid collection or abscess discretely identified. The right rectus abdominis at and oblique musculature appear asymmetrically enlarged, heterogeneous, and edematous. Appearance may be related to infectious etiologies or possibly hemorrhagic. No discrete fluid collections or definite blood products are identified. Punctate focus of air is noted in the right upper quadrant posterior to the rectus sheath, possibly related to recent surgery. Mild abdominal ascites. Large pelvic ascites. The urinary bladder appears grossly unremarkable. The uterus is present. No acute osseous abnormality is detected. Impression: Phlegmonous changes and bubbles of gas are noted within the right parasagittal soft tissues in the region of interest denoted by a BB marker. No focal fluid collection or abscess discretely identified. The right rectus abdominis and oblique muscles appear asymmetrically enlarged, heterogeneous, and edematous. Appearance may be related to infectious etiologies or possibly hemorrhagic. No discrete fluid collections or definite blood products are identified within the musculature. Punctate focus of air is noted in the right upper quadrant posterior to the rectus sheath, possibly related to recent surgery. Mild abdominal ascites. Large pelvic ascites. Cholecystectomy. 6 mm too small to characterize right hepatic lobe hypodensity.
[2016-11-28 16:55] VITALS: BP 131/90; PULSE 89; RESP 18; TEMP 98.4
[2016-11-28 18:33] VITALS: O2SAT 100
--- NOTE | 2016-11-29 12:33 | CARD ---
APPROVED REPORT EKG Measurement Heart [id number] <Conclusion> Normal sinus rhythm Possible Left atrial enlargement Cannot rule out Anterior infarct, age undetermined Abnormal ECG
== END 2016-11-28 16:55 | disposition home or self-care (01) ==
LOC: C.ER 12:11
DX: T81.89XA Other complications of procedures, not elsewhere classified, initial encounter (principal); Y83.8 Other surgical procedures as the cause of abnormal reaction of the patient, or of later complication, without mention of misadventure at the time of the procedure; Y92.89 Other specified places as the place of occurrence of the external cause; G89.18 Other acute postprocedural pain
CPT/HCPCS: 74177; 80053; 80324; 80345; 80346; 80349; 80353; 80358; 80361; 81001; 83690; 83992; 84703; 85025; 93005; 96361; 96374; 99285; J1885; J7040; Q9967